=== PATIENT | female | born 1985 | race Caucasian/White ===

== ENCOUNTER 2024-09-25 13:03 | Outpatient (CLI) | payer OTHER, SELFPAY | END 2024-09-25 13:04 | disposition home or self-care (01) | LOC: FRMREF 13:03 | PROVIDERS: Visit Provider Physician Assistant Medical | DX: L29.9 Pruritus, unspecified (principal) | CPT/HCPCS: 80053; 84443 ==

== ENCOUNTER 2024-10-12 12:31 | Outpatient (CLI) | payer OTHER, SELFPAY ==
--- NOTE | 2024-10-12 13:00 | CRLHL7_ITS ---
For Patients: As a result of the Century Cures Act, medical imaging exams and procedure reports are released immediately into your electronic medical record. You may view this report before your referring provider. If you have questions, please contact your health care provider. OBSTETRICAL ULTRASOUND TRANSVAGINAL, 10/12/2024 CLINICAL INDICATION: Dating and viability. Surgery: LMP: 08/11/2024 KOLBY by LMP: 05/18/2025 Gestational age: 8 weeks 6 days Previous ultrasound: No TECHNIQUE: Real-time blackburn-scale imaging of the fetus was performed transvaginal. Transvaginal imaging was performed for better visualization of the endometrium and ovaries. FINDINGS: CRL: 2.3 cm, 9 weeks 0 days; KOLBY 05/17/2025 heart rate: 171 BPM Gestational sac: 4.1 cm, appears within normal limits Yolk sac: 4.3 mm, appears within normal limits Right ovary: 2.7 x 1.7 x 1.2 cm Left ovary: 3.2 x 2.6 x 2.6 cm IMPRESSION: 1. Sonographic gestational age 9 weeks 0 days and sonographic due date 05/17/2025. 2. Bilateral ovarian cysts measuring 1.3 cm on the right and 2.4 cm on the left. 3. Likely normal pole, although mild edema may be present. Follow-up at 12 weeks is recommended. ERIC KIM M.D. Diagnostic Radiologist [email or web address] Transcribed: 4:[address]/Dictated by: Eric Kim MD @ 10/12/2024 3:45:00 PM (Electronically Signed)
== END 2024-10-12 12:32 | disposition home or self-care (01) ==
LOC: US 12:32
PROVIDERS: Visit Provider Advanced Practice Midwife
DX: Z34.91 Encounter for supervision of normal pregnancy, unspecified, first trimester (principal); O34.81 Maternal care for other abnormalities of pelvic organs, first trimester; N83.201 Unspecified ovarian cyst, right side; N83.202 Unspecified ovarian cyst, left side; Z3A.09 9 weeks gestation of pregnancy; Z3A.08 8 weeks gestation of pregnancy
CPT/HCPCS: 76817

== ENCOUNTER 2024-10-12 14:06 | Outpatient (CLI) | payer OTHER, SELFPAY | END 2024-10-12 14:07 | disposition home or self-care (01) | PROVIDERS: Visit Provider Advanced Practice Midwife | DX: Z34.91 Encounter for supervision of normal pregnancy, unspecified, first trimester (principal); Z3A.08 8 weeks gestation of pregnancy | CPT/HCPCS: 83020; 83021; 85660; 86592; 86703; 86704; 86706; 86762; 86787; 86803; 86850; 86900; 86901; 87086; 87340 ==

== ENCOUNTER 2024-11-02 10:05 | Outpatient (CLI) | payer OTHER, SELFPAY ==
--- NOTE | 2024-11-02 10:15 | CRLHL7_ITS ---
For Patients: As a result of the Century Cures Act, medical imaging exams and procedure reports are released immediately into your electronic medical record. You may view this report before your referring provider. If you have questions, please contact your health care provider. OBSTETRICAL ULTRASOUND TRANSABDOMINAL AND TRANSVAGINAL, 11/02/2024 CLINICAL INDICATION: Follow-up first trimester findings. Surgery: LMP: 08/11/2024 KOLBY by LMP: 05/18/2025 Gestational age: 11 weeks 6 days Previous ultrasound: Yes KOLBY by ultrasound: 05/17/2025 TECHNIQUE: Real-time blackburn-scale imaging of the fetus was performed transabdominal and transvaginal. Transvaginal imaging was performed for better visualization of the endometrium and ovaries. FINDINGS: CRL: 5.9 cm, 12 weeks 3 days; KOLBY 05/14/2025 heart rate: 155 BPM Gestational sac: 5.5 cm, appears within normal limits Yolk sac: Not visualized Right ovary: 2.5 x 1.2 x 2.6 cm Left ovary: 3.7 x 2.4 x 2.6 cm, CL IMPRESSION: 1. The pole is abnormal with diffuse edema present, particularly at the posterior neck which measures 7 mm in thickness. 2. Sonographic age is 12 weeks 3 days and sonographic due date is 05/14/2025. 3. Incidental corpus luteal cyst of the left ovary. 4. Recommend Maternal Medicine consult/genetic consultation. ERIC KIM M.D. Diagnostic Radiologist [email or web address] Transcribed: 11:[address]/Dictated by: Eric Kim MD @ 11/02/2024 11:16:00 AM (Electronically Signed)
== END 2024-11-02 10:06 | disposition home or self-care (01) ==
LOC: US 10:06
PROVIDERS: Visit Provider Advanced Practice Midwife
DX: O28.3 Abnormal ultrasonic finding on antenatal screening of mother (principal); O34.81 Maternal care for other abnormalities of pelvic organs, first trimester; N83.12 Corpus luteum cyst of left ovary; Z3A.12 12 weeks gestation of pregnancy
CPT/HCPCS: 76816; 76817

== ENCOUNTER 2025-01-03 08:25 | Outpatient (CLI) | payer OTHER, SELFPAY | END 2025-01-03 08:26 | disposition home or self-care (01) | LOC: US 08:26 | PROVIDERS: Visit Provider Midwife | DX: O09.522 Supervision of elderly multigravida, second trimester (principal); Z3A.20 20 weeks gestation of pregnancy | CPT/HCPCS: 76811; 76820 ==

== ENCOUNTER 2025-02-02 09:41 | Outpatient (CLI) | payer OTHER, SELFPAY | END 2025-02-02 09:42 | disposition home or self-care (01) | LOC: NFLDREF 09:42 | PROVIDERS: Visit Provider Advanced Practice Midwife | DX: Z34.92 Encounter for supervision of normal pregnancy, unspecified, second trimester (principal) | CPT/HCPCS: 86780 ==